=== PATIENT | male | born 1940 | race Caucasian/White ===

== ENCOUNTER 2018-05-14 09:18 | Inpatient (IN) | payer OTHER ==
[~2018-05-14] VITALS: Ht 170.2 cm; Wt 63.7 kg
[2018-05-14 09:23] VITALS: Ht 170.2 cm; Wt 63.7 kg
[2018-05-14 10:39] LABS: CARBON DIOXIDE 26.2 mmol/L (21-32); CHLORIDE SERUM 103 mmol/L (98-107); CREATININE SERUM 1.8 mg/dL (0.7-1.3); GLUCOSE SERUM 121 mg/dL (74-106); POTASSIUM SERUM 4.9 mmol/L (3.5-5.1); SODIUM SERUM 137 mmol/L (136-145)
[2018-05-14 10:41] LABS: BASOPHIL % 0.3 % (0-2); PLATELET COUNT 137 x10^3mcL (130-400)
[2018-05-14 10:49] LABS: ALBUMIN 3.5 g/dL (3.4-5.0); ALKALINE PHOSPHATASE 93 U/L (46-116); ALT/SGPT 27 U/L (16-63); AMYLASE 57 U/L (25-115); AST/SGOT 25 U/L (15-37); BILIRUBIN TOTAL 1.2 mg/dL (0.20-1.00); CHOLESTEROL 116 mg/dL (<200); HDL CHOLESTEROL 30 mg/dL (40-60); LIPASE 137 IU/L (73-393); MAGNESIUM 2.3 mg/dL (1.8-2.4); T4(THYROXINE) 5.8 ug/dL (4.7-13.3); TOTAL PROTEIN, SERUM 8.3 g/dL (6.4-8.2)
[2018-05-14 11:19] LABS: microscopic required? NO
[2018-05-14] MEDS ORDERED: LISINOPRIL2.5 MG PO (11:47)
[2018-05-14] MEDS ORDERED: MULTIVITAMIN1 SGL (11:50)
[2018-05-14] MEDS ORDERED: DIGOXIN0.125 M1 PO (11:50)
[2018-05-14] MEDS ORDERED: TOPROL XL25 MG PO (11:51)
[2018-05-14] MEDS ORDERED: LASIX20 MG PO (11:52)
[2018-05-14] MEDS ORDERED: XARELTO10 M1 PO (11:52)
[2018-05-14 11:53] LABS: urine erythrocyte NEGATIVE (NEGATIVE)
[2018-05-14] MEDS ORDERED: ELIQUIS2.5 MG PO ×2 (11:53)
[2018-05-14 11:59] LABS: AMPHETAMINE QUAL UR NONE DETECTED (See below)
[2018-05-14 14:08] VITALS: BP 113/79
[2018-05-14 17:00] VITALS: BP 117/74
[2018-05-14 19:44] VITALS: BP 122/80
[2018-05-15 05:48] VITALS: BP 116/66
[2018-05-15 06:42] LABS: CALCIUM 8.8 mg/dL (8.5-10.1); CARBON DIOXIDE 29.8 mmol/L (21-32); CHLORIDE SERUM 104 mmol/L (98-107); CREATININE SERUM 1.5 mg/dL (0.7-1.3); GLUCOSE SERUM 87 mg/dL (74-106); POTASSIUM SERUM 4.8 mmol/L (3.5-5.1); SODIUM SERUM 141 mmol/L (136-145)
[2018-05-15 07:03] LABS: BASOPHIL % 0.4 % (0-2); PLATELET COUNT 112 x10^3mcL (130-400); RED CELL DISTRIBUTION WIDTH 14.4 % (11.5-14.5)
[2018-05-15 09:26] VITALS: BP 107/81
[2018-05-15 13:09] VITALS: BP 121/79
[2018-05-15 16:26] VITALS: BP 105/67
[2018-05-15 20:36] VITALS: BP 109/75
[2018-05-16 06:07] VITALS: BP 115/64
[2018-05-16 07:08] LABS: BASOPHIL % 0.6 % (0-2); CALCIUM 8.6 mg/dL (8.5-10.1); CARBON DIOXIDE 32.6 mmol/L (21-32); CHLORIDE SERUM 103 mmol/L (98-107); CREATININE SERUM 1.6 mg/dL (0.7-1.3); GLUCOSE SERUM 73 mg/dL (74-106); PLATELET COUNT 124 x10^3mcL (130-400); RED CELL DISTRIBUTION WIDTH 14.4 % (11.5-14.5); SODIUM SERUM 140 mmol/L (136-145)
[2018-05-16 09:56] VITALS: BP 119/49
[2018-05-16 13:28] VITALS: BP 99/74
[2018-05-16 17:55] VITALS: BP 114/64
[2018-05-16 21:09] VITALS: BP 120/66
[2018-05-17 05:36] VITALS: BP 115/66
[2018-05-17 05:40] VITALS: BP 104/64
[2018-05-17 07:19] LABS: BASOPHIL % 0.4 % (0-2); PLATELET COUNT 149 x10^3mcL (130-400); RED CELL DISTRIBUTION WIDTH 14.5 % (11.5-14.5)
[2018-05-17 07:23] LABS: CARBON DIOXIDE 36.1 mmol/L (21-32); CHLORIDE SERUM 104 mmol/L (98-107); CREATININE SERUM 1.4 mg/dL (0.7-1.3); GLUCOSE SERUM 68 mg/dL (74-106); POTASSIUM SERUM 4.1 mmol/L (3.5-5.1); SODIUM SERUM 143 mmol/L (136-145)
[2018-05-17 07:58] VITALS: BP 119/63
[2018-05-17 13:02] VITALS: BP 120/91
[2018-05-17] MEDS ORDERED: LASIX20 MG PO (13:45)
[2018-05-17] MEDS ORDERED: METOPROLOL SUCC50 M2 PO (13:46)
[2018-05-17] MEDS ORDERED: DIG125 PO (13:46)
[2018-05-17 13:59] VITALS: BP 120/91
== END 2018-05-17 15:35 | disposition home health service (06) | DRG 291 ==
LOC: ED 09:18 → DU 12:23
PROVIDERS: Emergency Medicine; ADMIT Internal Medicine
DX: I11.0 Hypertensive heart disease with heart failure (principal); N17.0 Acute kidney failure with tubular necrosis; I48.91 Unspecified atrial fibrillation; I50.41 Acute combined systolic (congestive) and diastolic (congestive) heart failure; E11.65 Type 2 diabetes mellitus with hyperglycemia; E02 Subclinical iodine-deficiency hypothyroidism; Z68.27 Body mass index [BMI] 27.0-27.9, adult; Z79.01 Long term (current) use of anticoagulants; Z79.84 Long term (current) use of oral hypoglycemic drugs; Z91.14 Patient's other noncompliance with medication regimen
CPT/HCPCS: 82962; 83880; 90658; J1940; J3490

== ENCOUNTER 2018-10-22 04:18 | Inpatient (IN) | payer OTHER ==
[2018-10-22] VITALS (8 sets, daily range): BP systolic 81–124; BP diastolic 47–86
[~2018-10-22] VITALS: Ht 157.5 cm; Wt 68.0 kg
[~2018-10-22 04:18] MED LIST: DIG125 PO; DIGOXIN0.125 M1 PO; ELIQUIS2.5 MG PO; LASIX20 MG PO; LISINOPRIL2.5 MG PO; METOPROLOL SUCC50 M2 PO; MULTIVITAMIN1 SGL; TOPROL XL25 MG PO; XARELTO10 M1 PO
--- NOTE | 2018-10-22 04:45 | NUR ---
PT C/O OF CHEST PAIN AND ADM PAIN 12/05. SON STATES THAT FATHER WHEN HE CAME HOME LAST NIGHT WAS HAVING CHEST PAIN. SON SAYS FATHER DESCRIBES CHEST PAIN PRESSURE ON HIS CHEST. EKG NOTED OF AFIB W/ RVR DR NOTIFIED. PT A&OX3 UNABLE TO STATE WHERE HE WAS. PT SON AT BEDSIDE TRANSLATING WHAT PT NEEDS. ABLE TO COMMUNICATE NEEDS. PT W/ SINUS TACHY HR 140'S. DR NOTIFIED. HR SOUNDS RAPID GALLOP S1S2. O2 SATS 98-100%.
--- NOTE | 2018-10-22 05:07 | NUR ---
ADMIN 2.5 MG METROPOLOL AND WAITED FOR RESPONSE. AWAITING RESPONSE. WILL REASSESS.
--- NOTE | 2018-10-22 05:14 | NUR ---
NOTED PER DR TO ADMIN 2.5MG METROPOLOL AND WAIT 15 MINS TO REASSESS AND SEE IF THE OTHER 2.5ML IS NEEDED. ADMN 2.5MG METRO AWAITING RESULTS.
--- NOTE | 2018-10-22 05:17 | NUR ---
PT NOTED W/ INSPIRATORY WHEEZE [place] ALL LUNG SOLOMON.
--- NOTE | 2018-10-22 05:29 | NUR ---
NOTIFIED 2.5MG METRO W/ NO AVAIL. ADMIN REST OF 2.5MG METRO. ADMN 2.5MG METRO AWAITING RESULTS.
[2018-10-22 05:32] LABS: BASOPHIL % 0.5 % (0-2); PLATELET COUNT 155 x10^3mcL (130-400); RED CELL DISTRIBUTION WIDTH 14.1 % (11.5-14.5)
[2018-10-22 05:35] LABS: CALCIUM 8.5 mg/dL (8.5-10.1); CHLORIDE SERUM 101 mmol/L (98-107); CREATININE SERUM 2.1 mg/dL (0.7-1.3); GLUCOSE SERUM 93 mg/dL (74-106); POTASSIUM SERUM 5.1 mmol/L (3.5-5.1); SODIUM SERUM 134 mmol/L (136-145)
[2018-10-22 05:39] LABS: ALBUMIN 3.4 g/dL (3.4-5.0); ALKALINE PHOSPHATASE 77 U/L (46-116); ALT/SGPT 64 U/L (16-63); AST/SGOT 63 U/L (15-37)
[2018-10-22 05:41] LABS: TOTAL PROTEIN, SERUM 8.4 g/dL (6.4-8.2)
--- NOTE | 2018-10-22 06:50 | NUR ---
PT RESTING CALMLY IN BED. STATUS POST METRO ADM PT HR FROM THE 160'S DOWN TO THE 120'S. PT TOLERATING MORE MOVEMENT AND ACTIVITY. FAMILY @ BEDSIDE.
[2018-10-22] MEDS ORDERED: CLARITHROMYCIN500 M1 PO (07:35)
[2018-10-22] MEDS ORDERED: FLA500 PO (07:35)
[2018-10-22] MEDS ORDERED: AMPICILLIN500 MG PO (07:35)
[2018-10-22] MEDS ORDERED: EPZICOM1 TAB (07:35)
--- NOTE | 2018-10-22 07:36 | NUR ---
REPORT GIVEN TO LACIE FULLER. NURSING UPDATES. POC DISCUSSED.
--- NOTE | 2018-10-22 08:00 | NUR ---
RECEIVED PATIENT FROM ER AT THIS TIME. PATIENT ABLE TO AMBULATE FROM GURNEY TO BED WITH MINIMAL ASSISTANCE. PATIENT A/O X4 AND ABLE TO MAKE NEEDS KNOWN, FOLLOW COMMANDS, AND ANSWERS QUESTIONS APPROPRIATELY. DENIES HEADACHE/DIZZINESS. 2L NC IN PLACE AND TOLERATING WELL. BREATHING TACHYPNEA RR 24-28. PATIENT DENIES CHEST PAIN/PRESSURE AT THIS TIME. PULSES PALPABLE. WEAK PULSES NOTED TO PEDAL PULSES. EDEMA 3+ NOTED TO BLE (FEET). GENERALIZED WEAKNESS. BOWEL SOUNDS ACTIVE X4. PATIENT DENIES ABD PAIN, NAUSEA, AND VOMITING AT THIS TIME. PATIENT ABLE TO VOID WITH NO C/O BURNING/DISCOMFORT. MILD ERYTHEMA NOTED TO BUTTOCKS. ALL QUESTIONS AND CONCERNS ADDRESSED. SON AND AT BEDSIDE. ALL NEEDS ATTENDED TO. WILL CONTINUE TO MONITOR
--- NOTE | 2018-10-22 09:24 | NUR ---
ADMINISTERED CARDIZEM 15MG SLOW IVP AT THIS TIME. HR 119. PATIENT TOLERATED WELL. NO ADVERSE EFFECTS NOTED. ALL NEEDS ATTENDED TO. WILL CONTINUE TO MONITOR
--- NOTE | 2018-10-22 09:30 | NUR ---
PATIENT HEART RATE 95 AT THIS TIME S/P 15MG IVP CARDIZEM ADMINISTRATION. ALL NEEDS ATTENDED TO. WILL CONTINUE TO MONITOR
--- NOTE | 2018-10-22 11:15 | NUR ---
PATIENT NON RESPONSIVE TO VERBAL STIMULUS AND RAPID RESPONSE CALLED AT 10:47 AM. VITAL SIGNS 97/64 (75) HR 75 RR 26 AND O2 99 ON 2L NC. ACCUCHECK WAS CHECKED TWICE 10:49AM/10:50AM FIRST ONE WAS 34 AND SECOND 29. D50 ADMINISTERED AND BLOOD SUGAR RECHECKED AT 10:55 AM GLUCOSE 253. PATIENT ABLE TO OPEN EYES WITH PAINFUL STIMULATION, CONTINUED TO BE ALTERED. 10:57AM DR BARLOW AT BEDSIDE TO ASSESS PATIENT. VITAL SIGNS REASSESSED BLOOD PRESSURE 102/65 (72) HR 72 98% 2L NC. REASSESSED ACCUCHECK AT THIS TIME 11:15 GLUCOSE 184. BROUGHT PATIENT DOWN FOR STAT CT OF THE HEAD AND WILL TRANSFER PATIENT TO ICU BED 3. ALL QUESTIONS AND CONCERNS ADDRESSED. ALL NEEDS ATTENDED TO. WILL ENDORSE ALL CARE TO LOCK UP WORKERALINA JOSEPH
--- NOTE | 2018-10-22 11:23 | NUR ---
REPORT GIVEN TO [facility]- [facility]MO[facility]. ALL QUESTIONS ANSWERED. ATTENDING NURSE LACIE ACCOMPANIED PATIENT TO CT SCAN.
--- NOTE | 2018-10-22 11:35 | NUR ---
RECEIVED THE PATIENT TRANSFERRED FROM [facility]. PATIENT LETHARGIC AND CLOSING EYES, BUT AFTER WAKING UP THE PATIENT ORIENTED TO PERSON ANY PLACE AND IS GETTING RESTLESS AND AGITATED; PATIENT WAS EXPLAINED WHAT IS GOING ON AND REORIENTED PATIENT TO PLACE AND TIME. PATIENT DENIES ANY PAIN, SHORTNESS OF BREATH OR NAUSEA/VOMITING AT THIS TIME. PATIENT WAS HOOKED UP TO MONITOR # 3, WHICH READS AFIB. IV SITES NOTED TO RAC AND LAC. A SWAB FROM [facility] COLLECTED AND WILL BE SENT TO LAB FOR MRSA SCREENING. ASSESSMENT IMPLEMENTED. CALL LIGHT WITHIN REACH. SIDE RAILS UP X3. BED IS AT LOWEST POSITION, ALARM IS ON AND THE IS AT BEDSIDE.
--- NOTE | 2018-10-22 11:35 | NUR ---
PATIENT TRANSFERRED TO ICU BED 3 AT THIS TIME. ALL QUESTIONS AND CONCERNS ADDRESSED. ALL NEEDS ATTENDED TO. ENDORSED ALL CARE TO ICU NURSE JAKE
--- NOTE | 2018-10-22 13:55 | NUR ---
DR. GARCIA IS AT BEDSIDE ASSESSING THE PATIENT. UPDATE PROVIDED TO THE DOCTOR.
--- NOTE | 2018-10-22 14:15 | NUR ---
DR. GARCIA AT BEDSIDE ASSESSING PATIENT. MST ALINA MEDELLIN ON UNIT AND UPDATING DR. GARCIA TO PATIENTS STATUS. DR. GARCIA ORDERED 1L BOLUS OF NS. UPDATES PROVIDED TO STAFF ASSISTANT LORI AND PRIMARY RN JAKE.
--- NOTE | 2018-10-22 14:23 | NUR ---
ECHO PENDING PT. HAD STUDY DONE APRIL 2018
--- NOTE | 2018-10-22 14:38 | NUR ---
CAZARES CATH INSERTION WAS IMPLEMENTED ORDERED. SOME ADVID URINE NOTED IN THE CAZARES BAG.
[2018-10-22 15:00] LABS: BASOPHIL % 0.2 % (0-2); PLATELET COUNT 146 x10^3mcL (130-400)
[2018-10-22 15:04] LABS: RED CELL DISTRIBUTION WIDTH 14.6 % (11.5-14.5)
--- NOTE | 2018-10-22 15:23 | NUR ---
PATIENT TAKEN TO RAD DEPT FOR CT ABD/PELVIS AND ACCOMPANIED BY CHARGE NURSE.
[2018-10-22 15:35] LABS: CALCIUM 8.3 mg/dL (8.5-10.1); CHLORIDE SERUM 100 mmol/L (98-107); CREATININE SERUM 2.6 mg/dL (0.7-1.3); GLUCOSE SERUM 164 mg/dL (74-106); SODIUM SERUM 134 mmol/L (136-145)
--- NOTE | 2018-10-22 15:50 | NUR ---
THE CAME BACK TO THE ROOM.
[2018-10-22 15:58] LABS: CARBON DIOXIDE 7.4 mmol/L (21-32)
[2018-10-22 15:59] LABS: POTASSIUM SERUM 6.2 mmol/L (3.5-5.1)
--- NOTE | 2018-10-22 16:10 | NUR ---
DR. BECKHAM AND DR. 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
--- NOTE | 2018-10-22 16:30 | NUR ---
INTUBATION NOTE: AT 1625: 50MCG OF PROPOFOL GIVEN TO THE PATIENT. AT 1626: ANOTHER 50MCG OF PROPOFOL GIVEN TO THE PATIENT BECAUSE THE PATIENT REMAINS AGITATED AND ATTEMPTING TO GET OUT OF BED. AT 1626: 20MG OF ROCURONIUM GIVEN TO THE PATIENT. 15 1628: ANOTHER 20MG OF ROCURONIUM GIVEN TO THE PATIENT. AT 1629: THE PATIENT IS INTUBATED WITH ETT 8.0 IS SECURED TO FACE AT 26CM AT LIPLINE.
--- NOTE | 2018-10-22 16:30 | NUR ---
NGT WAS INSERTED TO RIGHT NARE BY THE CHARGE NURSE.
--- NOTE | 2018-10-22 16:45 | NUR ---
AT 1645: DR. BECKHAM AND DR. BARLOW ARE AT BEDSIDE GETTING READY FOR CVC PLACEMENT. TIME OUT IMPLEMENTED AT THIS TIME BY THE CHARGE FRANK MCKEON.
--- NOTE | 2018-10-22 17:55 | NUR ---
DR. VU IS IN TO SEE THE PATIENT.
--- NOTE | 2018-10-22 18:00 | NUR ---
CVC PLACEMENT IS DONE WITH CVC AT [facility]. AWAITING FOR XCR TO CONFIRM THE PLACEMENT.
--- NOTE | 2018-10-22 18:20 | NUR ---
RT GUI TITRATED FIO2 FROM 100% DOWN TO 50%.
--- NOTE | 2018-10-22 19:20 | NUR ---
REPORT GIVEN TO SHANNON MAN RN. CONCERNS ADDRESSED.
--- NOTE | 2018-10-22 19:25 | NUR ---
DR. LOPEZ IS AT BEDSIDE SEEING THE PATIENT. UPDATE PROVIDED TO THE DOCTOR. DOCTOR WILL ORDER SOME DIGOXIN FOR FOR THE PATIENT.
--- NOTE | 2018-10-22 19:30 | NUR ---
RECEIVED REPORT FROM ALINA JOSEPH. PT IS INTUBATED AND SEDATED WITH FENTANYL AND VERSED. PT IS ALERT AND RESPONSIVE TO TACTILE STIMULUS. 8.0 ETT AT 26 CM AT LL. RIGHT NGT PATENT , AND INTACT. PT IS BREATHING E.U ON VENT. SETTINGS INCLUDE TV: 450, O2: 50%, PEEP: 5, AND RATE: 18. LUNG SOUNDS SHOW COURSE CRACKLES TO BILATERAL UPPER LOBES, DIMINSHED TO BILATERAL LOWER LOBES. S1 S2 HEART SOUNDS AUSCULTATED, PT IN A FIB. PERIPHERAL IV TO RIGHT FA AND LEFT AC PATENT, DRESSING CDI. RIJ CVC PATENT, DRESSING CDI. D10 INFUSING AT 20 ML/HR, BANANNA BAG AT 101.6 ML/HR. EDEMA TO BLE +1. CAP REFILL <3 SECONDS X4. SKIN IS WARM AND CONSISTENT WITH ETHNICITY. PULSES MODERATE X2 BUE, WEAK X2 BLE. ABD IS SOFT AND FLAT WITH ACTIVE BOWEL SOUNDS X4Q. CAZARES DRAINING VIA GRAVITY URINE YELLOW WITH POOR OUTPUT. SOFT WRIST RESTRAINTS IN PLACE.
[2018-10-22 19:35] LABS: UA SPECIFIC GRAVITY >=1.030 (1.005-1.035); microscopic required? YES; urine erythrocyte TRACE (NEGATIVE)
[2018-10-22 19:43] LABS: AMPHETAMINE QUAL UR NONE DETECTED (See below)
[2018-10-22 21:13] LABS: BASOPHIL % 0.3 % (0-2); PLATELET COUNT 162 x10^3mcL (130-400)
--- NOTE | 2018-10-22 21:30 | NUR ---
CVP LINE INITIATED. CURRENT VALUE IS 23.
[2018-10-22 21:37] LABS: ALKALINE PHOSPHATASE 71 U/L (46-116); CALCIUM 7.8 mg/dL (8.5-10.1); CHLORIDE SERUM 104 mmol/L (98-107); CREATININE SERUM 3.1 mg/dL (0.7-1.3); SODIUM SERUM 146 mmol/L (136-145)
[2018-10-22 21:42] LABS: ALT/SGPT 1931 U/L (16-63)
[2018-10-22 21:43] LABS: POTASSIUM SERUM 5.6 mmol/L (3.5-5.1)
[2018-10-22 21:52] LABS: GLUCOSE SERUM 87 mg/dL (74-106)
[2018-10-22 22:10] LABS: TOTAL PROTEIN, SERUM 7.5 g/dL (6.4-8.2)
[2018-10-22 22:11] LABS: AST/SGOT 2917 U/L (15-37)
--- NOTE | 2018-10-22 22:53 | NUR ---
CARMELLA RT WENT FROM 50% TO 40% ON FIO2.
--- NOTE | 2018-10-22 23:00 | NUR ---
TITRATED FENTANYL FROM 0.379 TO 0.5 MCG/KG/HR FOR INCREASED AGITATION AND RESTLESSNESS.
--- NOTE | 2018-10-22 23:33 | NUR ---
DR. ADAIR AT BEDSIDE FOR UPDATES. ALL QUESTIONS AND CONCERNS ANSWERED.
[2018-10-23] VITALS (16 sets, daily range): BP systolic 87–121; BP diastolic 37–69
--- NOTE | 2018-10-23 00:03 | NUR ---
TITRATED VERSED FROM 1 TO 2 MG/HR FOR INCREASED AGITATION AND RESTLESSNESS.
--- NOTE | 2018-10-23 02:30 | NUR ---
TITRATED VERSED FROM 2 TO 1 MG/HR FOR DECREASED BP, AND PT NO LONGER SHOWING SIGNS OF AGITATION.
--- NOTE | 2018-10-23 03:09 | NUR ---
TITRATED VERSED FROM 1 TO 0.5 MG/HR FOR DECREASED BP, AND PT NO LONGER SHOWING SIGNS OF AGITATION.
--- NOTE | 2018-10-23 04:30 | NUR ---
PT PROVIDED WITH FULL BED BATH. ALL LINENS CHANGED, ALL SUCTION EQIPMENT CHANGED. PT'S TWO PERIPHERAL IV'S BECAME DISLODGED WHILE TURNING. PT TOLERATED WELL.
[2018-10-23 05:13] LABS: BASOPHIL % 0.1 % (0-2)
[2018-10-23 05:16] LABS: PLATELET COUNT 121 x10^3mcL (130-400); RED CELL DISTRIBUTION WIDTH 15.1 % (11.5-14.5)
--- NOTE | 2018-10-23 05:30 | NUR ---
TITRATED VERSED FROM 0.5 MG/HR TO 1 MG/HR FOR INCREASED RESTLESSNESS AND AGITATION.
[2018-10-23 05:34] LABS: CALCIUM 7.5 mg/dL (8.5-10.1); CARBON DIOXIDE 16.2 mmol/L (21-32); CHLORIDE SERUM 107 mmol/L (98-107); GLUCOSE SERUM 144 mg/dL (74-106); MAGNESIUM 2.8 mg/dL (1.8-2.4); POTASSIUM SERUM 4.4 mmol/L (3.5-5.1); SODIUM SERUM 145 mmol/L (136-145)
--- NOTE | 2018-10-23 05:45 | NUR ---
DR. BARLOW AT BEDSIDE FOR UPDATES. ALL QUESTIONS AND CONCERNS ANSWERED.
--- NOTE | 2018-10-23 07:15 | NUR ---
RECIEVED REPORT FROM ALINA MAN TO ASSUME ALL CARES. ALL QUESTIONS AND CONCERNS ADDRESSED. PATIENT IS SEDATED ON VERSED AND FENTANYL DRIP. RSS-5. ETT AND RIGHT NGT IN PLACE AND SECURED. ETT TO VENT. RESPIRATIONS ARE EQUAL AND SYMMETRICAL. RIJ TLC IN PLACE AND SECURED INFUSING WELL WITH DRESSING C/D/I. SCD'S ON TO BLE. F/C IN PLACE AND SECURED DRAINING YELLOW URINE TO GRAVITY. PATIENT POSITIONED TO RIGHT SIDE WITH PILLOWS IN PLACE TO ALLEVIATE PRESSURE POINTS AND HOB ELEVATED. BILATERAL SOFT WRISTS RESTRAINTS IN PLACE TO PREVENT PATIENT FROM PULLING OUT IV LINES/TUBES AND FOR PATIENT SAFETY. BED TO LOWEST POSITION, SIDE RAILS UP X3, CALL LIGHT WITHIN REACH. WILL CONTINUE TO MONITOR.
--- NOTE | 2018-10-23 07:36 | NUR ---
TITRATED VERSED TO 2 MG/HR AND FENTANYL TO 1 MCG/KG/HR FOR INCREASED AGITATION AND RESTLESSNESS.
--- NOTE | 2018-10-23 07:46 | NUR ---
ALL CARE ENDORSED TO ALINA MARIE. ALL QUESTIONS AND CONCERNS ANSWERED.
--- NOTE | 2018-10-23 07:50 | NUR ---
ETT IS AT 26 CM AT THE INNER LIP LINE. CXR CAME BACK SHOWING THE ETT TIP IS IN THE RIGHT MAINSTEM BRONCHUS AND SHOULD BE RETRACTED APPROX 2 CM. RT CARMELLA MADE AWARE AND IS AT BEDSIDE. ETT RETRACTED TO 25 CM LL. CXR TO BE ORDERED TO CONFIRM ETT PLACEMENT. WILL CONTINUE TO MONITOR.
--- NOTE | 2018-10-23 08:00 | NUR ---
BILATERAL SOFT WRISTS RESTARINTS REMOVED AT THIS TIME. PATIENT REMAINS SEDATED ON VERSED DRIP AT 2 MG/HR AND FENTANYL DRIP AT 1 MCG/KG/MIN. RSS-5. NO SIGNS OF PATIENT ATTEMPTING TO PULL OUT ETT AND/OR ANY OTHER LINES AT THIS TIME. PATIENT IN VIEW OF NURSING STATION AND WILL BE MONITORED CLOSELY. WILL CONTINUE TO MONITOR.
--- NOTE | 2018-10-23 08:39 | NUR ---
RECEIVED ORDERS FOR US GUIDED THORACENTESIS; PRELIMINARY EVAL DONE SHOWING APPROXIMATELY 300 ML RIGHT PLEURAL FLUID AND NO LEFT EFFUSION. ALSO, PT/PTT BOTH HIGH, AND PATIENT ON POSITIVE PRESSURE VENTILATION. SPOKE WITH PATIENT'S NURSE FRANK WHO WILL CONFER WITH CARE TEAM DURING ROUNDS REGARDING ORDER FOR THORACENTESIS. DR JOVEL AWARE.
--- NOTE | 2018-10-23 08:53 | NUR ---
VITAL AF 1.2 TUBE FEEDINGS STARTED AT THIS TIME AT 10 ML/HR VIA RIGHT NGT. FWF 50 ML Q 4 HRS. WILL CONTINUE TO MONITOR.
--- NOTE | 2018-10-23 09:18 | NUR ---
ISOGEL MATTRESS APLIED TO BED. WILL CONTINUE TO MONITOR.
--- NOTE | 2018-10-23 09:30 | NUR ---
DR. ALVAREZ AT BEDSIDE TO ASSESS PATIENT AND SPOKE TO PATIENT'S . UPDATES PROVIDED AND POC DISCUSSED. WILL CONTINUE TO MONITOR.
--- NOTE | 2018-10-23 09:39 | NUR ---
PATIENT ROUNDS WITH DR. SADLER AND RESIDENTS. CHARGE NURSE AND PRIMARY NURSE AT BEDSIDE. UPDATES PROVIDED AND POC DISCUSSED. WILL CONTINUE TO MONITOR.
--- NOTE | 2018-10-23 09:41 | NUR ---
NIBP 86/49, MAP 64. VERSED DRIP TITRATED DOWN TO 1 MG/HR AND FENTANYL DRIP REMAINS AT 1 MCG/KG/HR. RSS-5. WILL CONTINUE TO MONITOR.
--- NOTE | 2018-10-23 12:00 | NUR ---
DR. GARCIA AND DR. BARLOW AT BEDSIDE TO ASSESS PATIENT. UPDATES PROVIDED AND POC DISCUSSED. ORDERS TO TITRATE SEDATION DOWN, GIVE 1 LITER LACTATED RINGERS IV AND PATIENT TOLERATES TUBE FEEDINGS THE D10 IVF'S CAN BE TITRATED OFF TO MAINTAIN BLOOD SUGAR NEEDED. WILL FOLLOW AND CONTINUE TO MONITOR.
--- NOTE | 2018-10-23 12:05 | NUR ---
VERSED DRIP TITRATED DOWN TO 0.5 MG/HR AND FENTANYL DRIP TITRATED DOWN TO 0.5 MCG/KG/HR. RSS REMAINS 5. WILL CONTINUE TO MONITOR.
--- NOTE | 2018-10-23 12:26 | NUR ---
KIARRA KAHN AT BEDSIDE FOR ECHOCADIOGRAM. WILL CONTINUE TO MONITOR.
--- NOTE | 2018-10-23 13:13 | NUR ---
LIMITED ECHO-PER DR GARCIA-DONE
--- NOTE | 2018-10-23 14:01 | NUR ---
RIGHT SIDED THORACENTESIS DONE BY DR. JOVEL AT BEDSIDE. ONLY APPROX 20 ML'S OF BLOOD DRAINED. FLUID SENT TO LAB FOR TEST BY ALINA MEYER. PATIENT TOLERATED WELL. WILL CONTINUE TO MONITOR.
--- NOTE | 2018-10-23 14:30 | NUR ---
VITAL AF 1.2 TUBE FEEDINGS TITRATED UP 20 20 ML/HR AT THIS TIME. WILL CONTINUE TO MONITOR.
--- NOTE | 2018-10-23 15:30 | NUR ---
RECIEVED CALL FROM MICROBILOGY THAT THE THORACENTESIS FLUID IS BEING REJECTED TO RUN ANY TESTS DUE TO NOT HAVING ENOUGH. DR. BARLOW MADE AWARE. WILL CONTINUE TO MONITOR.
--- NOTE | 2018-10-23 17:00 | NUR ---
DR. SPARKS AT BEDSIDE TO ASSESS PATIENT. UPDATES PROVIDED AND POC DISCUSSED. WILL CONTINUE TO MONITOR.
--- NOTE | 2018-10-23 18:30 | NUR ---
VITAL AF 1.2 TUBE FEEDINGS TITRATED UP TO 30 ML/HR WITH FWF REMAINING THE SAME AT 50 ML/HR Q 4 HRS. WILL CONTINUE TO MONITOR.
--- NOTE | 2018-10-23 19:05 | NUR ---
RECEIVED REPORT FROM FRANK FULLER. ASSUMING ALL CARE
--- NOTE | 2018-10-23 19:20 | NUR ---
RECEIVED PT LAYING IN BED. PT IS INTUBATED AND SEDATED ON FENTANYL @ 0.5 MCG/KG/HR AND VERSED @ 0.5 MG/HR. PT RESPONDS TO PAINFUL STIMULI. RSS=5. PUPILS WITH SLUGGISH RESPONSE TO LIGHT, 3 MM BILAT. GAG REFLEX PRESENT. PT NOT ABLE TO FOLLOW SIMPLE COMMANDS. 8.0 ETT INTACT/SECURED. 25 CM @ LL. RIJ CVC IN PLACE, DRESSING CDI, ALL PORTS PATENT. RIGHT NARE NGT IN PLACE/SECURED. ORAL CARE PROVIDED PER VAP PROTOCOL. BREATHING IS E/U ON VENT. VENT SETTINGS: VCV/AC MODE, RATE 18, VT 450, FIO2 30%, PEEP 5. LUNGS SOUND CLEAR BILAT. SYMMETRICAL CHEST EXPANSION NOTED. S1/S2 HEART SOUNDS AUSCULTATED. CHEST WALL EQUAL AND SYMMETRICAL. NO S/S OF CP NOTED. HR 88, BP 91/48 MAP 66. CVP=10. WEAK PULSES X4 EXTREMITIES. SKIN IS WARM AND DRY. +1 PITTING EDEMA NOTED TO BLE. CAP REFILL < [address] D10 INFUSING @ 20 ML/HR. GENERALIZED WEAKNESS. PT ON BEDREST. NO JOINT SWELLING/DEFORMITY NOTED. VITAL AF TF INFUSING @ 30 ML/HR WITH 50 CC FWF Q4H. GRV=5, REPLACED. TOLERATING WELL. NO N/V NOTED. ABD IS SOFT/DISTENDED. BOWEL SOUNDS ACTIVE X4 QUADRANTS. NO BM NOTED. CAZARES IS INTACT/SECURED, DRAINING VIA GRAVITY WITH YELLOW COLORED URINE. NO SCROTAL EDEMA NOTED. ERYTHEMA NOTED TO COCCYX AREA, OPTIFOAM IN PLACE. PT REPOSITIONED Q2H AND PRN FOR COMFORT. FAMILY AT BEDSIDE. BED IN LOW POSITION. CALL LIGHT IN REACH. WILL CONT TO MONITOR
--- NOTE | 2018-10-23 21:10 | NUR ---
BS 144. PT ON VITAL AF TUBE FEEDING AT 30 ML/HR. D10 TITRATED TO 10 ML/HR PER ORDER. WILL CONT TO MONITOR
--- NOTE | 2018-10-23 22:30 | NUR ---
GRV=30. VITAL AF TF ADVANCED TO 40 ML/HR WITH 50 CC FWF Q4H. WILL CONT TO MONITOR.
[2018-10-24] VITALS (18 sets, daily range): BP systolic 79–127; BP diastolic 41–70; Ht 157.5 cm; Wt 68.0 kg
--- NOTE | 2018-10-24 00:24 | NUR ---
DR. GARCIA AT BEDSIDE, UPDATED ON PT'S CURRENT STATUS. NO NEW ORDERS
--- NOTE | 2018-10-24 02:30 | NUR ---
GRV=15. VITAL AF TUBE FEEDING ADVANCED TO GOAL OF 45 ML/HR WITH 50 CC FWF Q4H. WILL CONT TO MONITOR
--- NOTE | 2018-10-24 04:45 | NUR ---
FULL BED BATH PROVIDED. GOWN AND LINENS CHANGED. PERICARE, ORAL, AND CAZARES CARE PROVIDED. HEELS OFFLOADED. SCD IN PLACE.
[2018-10-24 05:00] LABS: CALCIUM 6.8 mg/dL (8.5-10.1); CHLORIDE SERUM 109 mmol/L (98-107); CREATININE SERUM 2.5 mg/dL (0.7-1.3); GLUCOSE SERUM 233 mg/dL (74-106); MAGNESIUM 2.4 mg/dL (1.8-2.4); PHOSPHOROUS 3.8 mg/dL (2.5-4.9); POTASSIUM SERUM 3.4 mmol/L (3.5-5.1); SODIUM SERUM 147 mmol/L (136-145)
[2018-10-24 05:05] LABS: BASOPHIL % 0 % (0-2); PLATELET COUNT 123 x10^3mcL (130-400); RED CELL DISTRIBUTION WIDTH 14.9 % (11.5-14.5)
--- NOTE | 2018-10-24 05:40 | NUR ---
DR. BARLOW AT BEDSIDE. UPDATED ON PT'S STATUS. ALL QUESTIONS/CONCERNS ADDRESSED
--- NOTE | 2018-10-24 05:55 | NUR ---
DR. BARLOW MADE AWARE PT HAS ACHS ACCU CHECKS AND NO SLIDING SCALE ORDERED. AWAITING ORDERS
--- NOTE | 2018-10-24 07:00 | NUR ---
RECEIVED REPORT FROM ERNESTINA FULLER. QUESTIONS AND CONCERNS ADDRESSED. WILL RESUME CARE OF PT.
--- NOTE | 2018-10-24 07:04 | NUR ---
REPORT GIVEN TO DEIDRA FULLER. ALL QUESTIONS/CONCERNS ADDRESSED AT THIS TIME. ENDORSING ALL CARE
--- NOTE | 2018-10-24 07:05 | NUR ---
RECEIVED PT INTUBATED AND SEDATED ON FENT @ 0.5 MCG/KG/HR AND VERSED @ 0.5 MG/HR. RSS = 4. ABLE TO FOLLOW SIMPLE COMMANDS. EYES OPEN TO VERBAL, TACTILE, AND PAINFUL STIMULUS. PUPILS ARE EQUAL, ROUND, AND REACTIVE TO LIGHT B/E. NO FACIAL DROOP NOTED. ABLE TO NOD IN RESPONSE TO QUESTIONS. 8.0 ETT @ 25 LL. R NARE NGT INTACT AND SECURED, NGT TO VITAL AF 1.2 TUBE FEEDINGS @ 45 ML/HR WITH 50CC FWF Q4H. NO S/S OF ASPIRATION NOTED. RIJ TLC CVC INTACT AND SECURED, DRESSING CDI. D10 INFUSING @ 10 ML/HR. TRACHEA MIDLINE. NO JVD PRESENT. ETT TO VENT: VCV/AC MODE = 5 PEEP, 18 RATE, 450 VT, 30% FIO2. RESPIRATIONS ARE EVEN AND UNLABORED. SYMMETRICAL CHEST WALL EXPANSION NOTED. NO AUDIBLE ADVENTITIOUS LUNG SOUNDS HEARD. NO S/S OF RESP DISTRESS NOTED. A-FIB ON TEACHERS ASSISTANT. NO S/S OF CP. +1 EDEMA TO BUE, +2 PITTING EDEMA TO BLE. SKIN IS WARM/DRY TO TOUCH, GARCIA/BROWN IN COLOR. ABD IS SOFT, SYMMETRICAL, ROUNDED, AND NONTENDER. NO BM AT THIS TIME. F/C INTACT AND DRAINING VIA GRAVIY, NO DEPENDENT LOOPS NOTED. URINE IS YELLOW IN COLOR. NO PENILE DISCHARGE/BLEEDING, NO SCROTAL EDEMA. ERYTHEMA NOTED TO COCCYX AREA WITH OPTIFOAM IN PLACE. X3 SIDE RAILS UP, HOB 30 DEGREES, SCD TO BLE, ISOGEL MATTRESS IN USE, BED IN LOWEST POSITION.
[2018-10-24 07:10] LABS: BILIRUBIN DIRECT 1.53 mg/dL (0.0-0.2); BILIRUBIN TOTAL 2.18 mg/dL (0.20-1.00)
[2018-10-24 07:11] LABS: TOTAL PROTEIN, SERUM 5.4 g/dL (6.4-8.2)
--- NOTE | 2018-10-24 08:13 | NUR ---
TITRATED FENT TO 0.25 MCG/KG/HR AND VERSED TO 0.25 MG/HR FOR CPAP TRIALS LATER TODAY.
--- NOTE | 2018-10-24 08:13 | NUR ---
DR. GARCIA AT BEDSIDE ASSESSING PT. ALL QUESTIONS ANSWERED AND ADDRESSED. STATED FOR PT TO BE WEANED OFF SEDATION AND FOR CPAP TRIALS LATER ON IN THE DAY. WILL CARRY OUT ORDERS.
--- NOTE | 2018-10-24 08:15 | NUR ---
DR. GARCIA STATED FOR LACTIC ACID LABS TO BE DISCONTINUED FOR THE PT BECAUSE OF THE PT'S LAB VALUE WITHIN RANGE (LACTIC ACID = 1.4).
[2018-10-24] MEDS ORDERED: XARELTO10 M1 PO (08:25)
[2018-10-24] MEDS ORDERED: SPIRONOLACTONE100 MG PO (08:26)
[2018-10-24] MEDS ORDERED: LASIX20 MG PO (08:27)
--- NOTE | 2018-10-24 09:35 | NUR ---
ZHENG RT AT BEDSIDE FOR CPAP TRIALS. SHERITA AND NITA BOTH TURNED OFF AT THIS TIME. BILATERAL SOFT WRIST RESTRAINTS APPLIED TO PT FOR SAFETY. TWO FINGER WIDTH APPLIED UNDER RESTRAINTS, PT ABLE TO MOVE FINGERS B/E, CAP REFILL <3 SEC TO BUE.
--- NOTE | 2018-10-24 10:34 | NUR ---
PATIENT ROUNDS WITH DR. PLUMMER AND RESIDENTS. CHARGE NURSE AND PRIMARY NURSE AT BEDSIDE. UPDATES PROVIDED AND POC DISCUSSED. WILL CONTINUE TO MONITOR.
--- NOTE | 2018-10-24 12:42 | NUR ---
SCREEN FOR LOW JAIMEE SCALE AT RISK CONTINUE PRESSURE ULCER INJURY PREVENTION INTERVENTIONS: -TURN AND REPOSITION PATIENT Q 2H OFFLOAD LEFT AND RIGHT BUTTOCKS -ASSESS AND MONITOR SKIN CONDITION DURING POSITION CHANGE -OFFLOAD BILATERAL HEELS BY PLACING PILLOWS UNDER CALVES AT ALL TIMES, UNLESS OTHERWISE CONTRAINDICATED -PRESSURE REDISTRIBUTION SURFACE THERAPY -KEEP SKIN CLEAN AND DRY AT ALL TIMES. -OPTIFOAM TO BUTTOCKS QD AND PRN IF SOILING PREVENTION
--- NOTE | 2018-10-24 13:20 | NUR ---
PT HAD A SOFT LIGHT BROWN/YELLOW MODERATE BOWEL MOVEMENT. PT CLEANED, CHUCKS CHANGED, NEW OPTIFOAM IN PLACE. PT TOLERATED WELL. NO ACUTE DISTRESS NOTED.
--- NOTE | 2018-10-24 16:16 | NUR ---
TITRATED PT PSV FROM [address] GARCIA. PT TOLERATING CHANGES WELL. WILL PLACE PT BACK ON FULL SUPPORT LAST VENT CHECK.
--- NOTE | 2018-10-24 16:50 | NUR ---
DR. SPARKS AT BEDSIDE ASSESSING PT. STATED TO CHANGE FWF TO 100 CC Q2H. WILL CARRY OUT ORDERS.
--- NOTE | 2018-10-24 17:27 | NUR ---
PT HAD A SMALL MUCOUS-LIKE BOWEL MOVEMENT. SCANT AMNT OF BLOOD NOTED IN STOOL. PT CLEANED, CAZARES CARE COMPLETED, CHG WIPES APPLIED, CHUCKS CHANGED. PT TOLERATED WELL.
--- NOTE | 2018-10-24 17:30 | NUR ---
ZHENG RT AT BEDSIDE PLACING PT BACK ON VCV/AC MODE. INITIATED FENT AT 0.5 MCG/KG/HR AND VERSED @ 0.5 MG/HR PER DR. GARCIA'S ORDERS.
--- NOTE | 2018-10-24 19:30 | NUR ---
REC'D REPORT FROM YOLANDA FULLER TO ASSUME CARE. PT INTUBATED AND SEDATED ON VERSED 0.5 MG/HR, FENTANYL 0.5 MCG/KG/HR WITH RSS 4. PERRLA NOTED. 8.0 ETT SECURED AND 25 CM LL. NO JVD NOTED. TRACHEA MIDLINE. R NARE NGT INTACT AND PATENT. RIJ CVC INTACT, PORTS PATENT, DSG CDI. ETT TO VENT: AC MODE RATE 14, TV 450, PEEP 5, FIO2 30%. RESPS E/U. CHEST RISE EQUAL AND SYMMETRICAL. LUNG SOUNDS EXP WHEEZES [place], DIM BASES. ADOBE FLEX DEVELOPER IN PLACE SHOWING AFIB WITH HR 89. BP 119/62 MAP 81. PULSES PALPABLE X4. CAP REFILL < 3 SECS. BUE TRACE EDEMA, BLE 2+ PITTING EDEMA ELEVATED ON PILLOWS. BLE SCDS IN PLACE. ISOGEL MATTRESS IN PLACE. TF VITAL AF INFUSING @ 45ML/HR WITH FWF 100ML Q2H, GRV=10ML REPLACED, TOLERATING WELL. ABD ROUND, SOFT, NONTENDER TO TOUCH. BOWEL SOUNDS ACTIVE. NO N/V NOTED. F/C INTACT AND DRAINING VIA GRAVITY YELLOW URINE. NO SCROTAL EDEMA. NO PENILE DISCHARGE NOTED. ERTHEMA TO COCCYX AREA WITH OPTIFOAM IN PLACE. GEN WEAKNESS NOTED. TURNED AND REPOSITIONED Q2H FOR PRESSURE RELIEF. BUE SOFT WRIST RESTRAINTS IN PLACE FOR PT SAFETY. FALL PRECAUTIONS APPLIED AND MAINTAINED. PTS AT BEDSIDE. ALL NEEDS MET AT THIS TIME. WILL CONTINUE TO MONITOR.
--- NOTE | 2018-10-24 20:10 | NUR ---
FULL BED BATH PROVIDED WITH CHG WIPES, F/C CARE PROVIDED, LINENS CHANGED. NO BM NOTED. COCCYX AREA OPTIFOAM CDI.
--- NOTE | 2018-10-24 23:50 | NUR ---
PT WITH RSS 4, NO S/SX OF PAIN PER FLACC SCALE.
[2018-10-25] VITALS (13 sets, daily range): BP systolic 111–134; BP diastolic 60–91
--- NOTE | 2018-10-25 02:00 | NUR ---
PTS CAZARES EMPTIED 1L DAVID COLORED URINE.
--- NOTE | 2018-10-25 03:59 | NUR ---
PT SEDATED WITH RSS 4, NO S/SX OF PAIN PER FLACC SCALE.
[2018-10-25 04:54] LABS: BASOPHIL % 0.7 % (0-2)
[2018-10-25 05:01] LABS: PLATELET COUNT 116 x10^3mcL (130-400); RED CELL DISTRIBUTION WIDTH 15.4 % (11.5-14.5)
[2018-10-25 05:13] LABS: ALKALINE PHOSPHATASE 72 U/L (46-116); BILIRUBIN TOTAL 2.42 mg/dL (0.20-1.00); CALCIUM 6.8 mg/dL (8.5-10.1); CARBON DIOXIDE 29.2 mmol/L (21-32); CHLORIDE SERUM 111 mmol/L (98-107); CREATININE SERUM 1.8 mg/dL (0.7-1.3); GLUCOSE SERUM 157 mg/dL (74-106); POTASSIUM SERUM 3.4 mmol/L (3.5-5.1); SODIUM SERUM 147 mmol/L (136-145)
[2018-10-25 05:15] LABS: ALBUMIN 1.9 g/dL (3.4-5.0); ALT/SGPT 2051 U/L (16-63); AST/SGOT 1086 U/L (15-37); TOTAL PROTEIN, SERUM 5.5 g/dL (6.4-8.2)
--- NOTE | 2018-10-25 05:15 | NUR ---
DR SILVAED AT BEDSIDE, UPDATED ON STATUS, NO NEW ORDERS GIVEN.
--- NOTE | 2018-10-25 06:28 | NUR ---
DR GARCIA AT BEDSIDE, UPDATED ON STATUS, PER DR GARCIA START WEANING TRIALS TODAY ON CPAP, ABG ON CPAP, THEN POSSIBLY EXTUBATE.
--- NOTE | 2018-10-25 07:16 | NUR ---
REPORT GIVEN TO ZULLY FULLER TO ASSUME CARE.
--- NOTE | 2018-10-25 07:52 | NUR ---
FENTANYL AND VERSED TURNED OFF @ 0747 FOR VENT WEANING TRIAL. WILL CONTINUE TO MONITOR PT.
--- NOTE | 2018-10-25 08:10 | NUR ---
PT PLACED ON CPAP 10/5 BY RT AT THIS TIME. WILL CONTINUE TO MONITOR FOR S/S DISTRESS. RR 14, SPO2 99%.
--- NOTE | 2018-10-25 11:08 | NUR ---
PT EXTUBATED AT THIS TIME. NO STRIDOR NOTED, RR 18, SPO2 99% ON 2L NASAL CANNULA. NO S/S DISTRESS NOTED. CHEST EXPANSION SYMMETRIC. WILL CONTINUE TO MONITOR PATIENT.
--- NOTE | 2018-10-25 14:28 | NUR ---
Initial Nutrition Assessment: (IC03-A) JENNIFER ESCOBARIREZJUAN A 77M Dx: Afib w/ rapid ventricular response PMHx: CHF PSHx: None Labs: Na 147 H, K 3.4 L, BG 157 H, BUN 41 H, Cr 1.8 H, Alb 1.9 L, Ca 6.8 L, AST 1086 H, ALT 2051 H, BNP 686.81, PT 14. 0 H, PTT 34.3 H, INR 1.5 H Meds: Cephulac, Folic Acid, Pro-amatine, VitB1 Diet: NPO (TF), Vital AF 1.2 @10mL/hr (goal 45mL), adv q4hrs, FWF 100mL q2hrs PO intake since admission: NPO Ht: 62in Wt: 148# BMI: 27.2 Bed scale: Unable to assess (on bed vargas at this time) IBW: 118# %IBW: 125% UBW: Unable to assess (on bed vargas at this time) Age: 77 Food Allergies: Unable to assess (on bed vargas at this time) Skin: Erythema to coccyx area w/ optifoam in place Matthew: 13 Edema: trace BUE, BLE 2+ pitting GI: Abd round, soft, nontender to touch, BS active, no N/V noted Last BM: 10/25 RD Note (10/25): Noted pt intubated 10/22 per H&P, planned to be extubated today 10/25 r/t significant improvement today. Pt noted on mechanical vent. Pt discussed during bed huddles, Dr Foster states pt is improving well, plan to wean off vent. Visited pt bedside, COMMUNICATION PROFESSOR states pt would not like to be bothered right now, on bedpan at this time. Spoke w/ RN, states pt does not have much residuals (5mL at most), and TF is at 45mL/hr at this time. If pt eaned off mechanical ventliation, will recommend readjust TF + FWF orders. Spoke w/ Dr Moreno regarding TF& FWF recommendation, confirmed. Problem with N/V/D/C: Unable to assess (on bed vargas at this time) Problems with: Chewing: Unable to assess (on bed vargas at this time) Swallowing: Unable to assess (on bed vargas at this time) Current appetite: Unable to assess (on bed vargas at this time) Recent wt change: Unable to assess (on bed vargas at this time) %wt change: Unable to assess (on bed vargas at this time) Vitamin/Supplement use: Unable to assess (on bed vargas at this time) Special diet at home: Unable to assess (on bed vargas at this time) Physical activity: Unable to assess (on bed vargas at this time) Nutrition education given (specify specific nutrition education and handout given): None given at this time. Food-drug interactions? Education given? None given at this time. Estimated Nutritional Needs Based on actual body weight (67 kg) Energy: 1816-2348 kcal/day (25-30 kcal/kg for ICU, intubated) vs 1326 kcal/day (PSU, 2003b) Protein: 80-100 g/day (1.2-1.5 g/kg preserve LBM) Fluid: 2154-2284 mL/day (1 mL/kcal) or per MD Nutrition Diagnosis: Increased nutrient needs r/t medical condition AEB need for TF, intubation, in ICU Intervention 1. If pt weaned off mechanicalventilation, consider increasing TF goal rate to 55mL/hr (1320mL, 1584kcal, 99g Pro, 1070mL H20) + decrease FWF to 60mL q2hrs (720mL H20) 2. Spoke w/ Dr Moreno regarding TF& FWF recommendation, confirmed. Monitor/Evaluate Goal: at least 75% of estimated needs Monitor: TF, Labs, GI function F/U in 2-3 days as high risk 10/27-10/28
--- NOTE | 2018-10-25 16:41 | NUR ---
PATIENT'S HEART RATE 168 A-FIB. HAVING SMALL RUNS A A-FIB WITH HR GREATER THAN 120. TELEPHONED DR BARLOW AT THIS TIME AND MADE AWARE. AWAITING NEW ORDERS.
--- NOTE | 2018-10-25 19:15 | NUR ---
DR PAGE AT BEDSIDE TO ASSESS PATIENT. MAGDA FULLER TRANSLATING TO PATIENT'S FAMILY (IN [place]) FOR DR PAGE.
--- NOTE | 2018-10-25 19:24 | NUR ---
REPORT RECIEVED FROM ALINA ANDREA. NURSING UPDATES POC DISCUSSED. SEE SHIFT ASSESSMENT FOR ASSESSMENT.
--- NOTE | 2018-10-25 19:25 | NUR ---
DR GARCIA @ BEDSIDE. NEW ORDERS DC ZOSYN AND FLAGYL. NEW ORDERS ROCEPHIN 2G IV DAILY. VANCO IV PER PHARMACRY.
--- NOTE | 2018-10-25 23:28 | NUR ---
PT RESTING CALMLY IN BED. NO S/S OF DISTRESS. VS WNL W/ NOTED AFIB. EYES ALIGNMENT NOTED SLIGHTLY OFF. PT W/ LOOSE BROWN BM USING BEDPAN CLEANED AND DRIED. REDNESS TO COCCYX AREA AND LEFT OPTIFOAM OFF BECAME SOILED FROM.
--- NOTE | 2018-10-26 01:46 | NUR ---
PT W/ LOOSE/LIQUID BROWN SCANT BM. PT CLEANED AND TOLERATED. WILL CONT TO MONITOR.
--- NOTE | 2018-10-26 02:30 | NUR ---
PT W/ BROWN UNFORMED BM. TOLERATED WELL. PT CLEANED W/ NEW CHUCKS. WILL CONT TO MONITOR.
[2018-10-26 03:05] VITALS: BP 138/70
--- NOTE | 2018-10-26 03:18 | NUR ---
PT RESTING CALMLY IN BED. NO ACUTE CHANGES. WILL CONT TO MONITOR AND ENDORSE.
--- NOTE | 2018-10-26 04:59 | NUR ---
PT CLEANED, BED BATH GIVEN, NEW LINENS, NEW OPTIFOAM APPLIED. NO ACUTE CHANGES. WILL ENDORSE.
--- NOTE | 2018-10-26 05:00 | NUR ---
BOX CUTTER @ BEDSIDE FOR AM LABS
[2018-10-26 05:19] LABS: BASOPHIL % 0.2 % (0-2)
[2018-10-26 05:21] LABS: PLATELET COUNT 110 x10^3mcL (130-400); RED CELL DISTRIBUTION WIDTH 15.5 % (11.5-14.5)
[2018-10-26 05:50] LABS: PHOSPHOROUS 2.7 mg/dL (2.5-4.9)
[2018-10-26 06:07] LABS: ALKALINE PHOSPHATASE 84 U/L (46-116); ALT/SGPT 1498 U/L (16-63); AST/SGOT 491 U/L (15-37); BILIRUBIN TOTAL 2.27 mg/dL (0.20-1.00); CALCIUM 7.5 mg/dL (8.5-10.1); CARBON DIOXIDE 27.4 mmol/L (21-32); CHLORIDE SERUM 112 mmol/L (98-107); CREATININE SERUM 1.4 mg/dL (0.7-1.3); GLUCOSE SERUM 116 mg/dL (74-106); POTASSIUM SERUM 3.7 mmol/L (3.5-5.1); SODIUM SERUM 147 mmol/L (136-145); TOTAL PROTEIN, SERUM 5.3 g/dL (6.4-8.2)
--- NOTE | 2018-10-26 06:12 | NUR ---
ESTATE MANAGER @ BEDSIDE.
--- NOTE | 2018-10-26 06:16 | NUR ---
ATTEMPTED SWALLOW EVAUL. TOLERATED POORLY. COUGHING W/ SMALL AMOUNTS OF WATER. WILL ENDORSE.
--- NOTE | 2018-10-26 06:28 | NUR ---
PT W/ UNFORMED BROWN BM. CLEANEN AND LINENS CHANGED. WILL ENDORSE.
--- NOTE | 2018-10-26 07:10 | NUR ---
REPORT RECEIVED FROM ALINA MAN. PT RECEIVED RESTING IN BED, BED IN LOWEST POSITION WITH WHEELS LOCKED AND SIDE RAILS UP. OF PT ASLEEP AT BEDSIDE IN CHAIR. PT BREATHING E/U ON 2L NASAL CANNULA, NO DISTRESS NOTED. TUBE FEEDING VITAL AF RUNNING AT 55 ML/HR WITH 100 ML FWF Q2H. PT AROUSABLE TO VOICE, FOLLOWS SIMPLE COMMANDS AND IS ABLE TO COMMUNICATE NEEDS THEY ARISE. WILL CONTINUE TO MONITOR PATIENT.
--- NOTE | 2018-10-26 07:19 | NUR ---
REPORT GIVEN TO ALINA ANDREA. NURSING UPDATES. POC DISCUSSED CARE OF PT RELEASED TO RN.
[2018-10-26 07:27] VITALS: BP 130/71
--- NOTE | 2018-10-26 09:38 | NUR ---
DR. LOREDO AT BEDSIDE ASSESSING PT. UPDATES PROVIDED, QUESTIONS ANSWERED. REQUESTED OBTAINING A CHEST XRAY TODAY AND RECOMMENDED 20 MG IVP LASIX.
--- NOTE | 2018-10-26 10:30 | NUR ---
DR. PLUMMER AND RESIDENTS AT BEDSIDE. UPDATES PROVIDED, QUESTIONS ADDRESSED. POC UPDATED TO START INCLUDING PT'S HOME MEDS WHILE HERE. WILL CARRY OUT NEW ORDERS THEY COME.
--- NOTE | 2018-10-26 12:00 | NUR ---
PT HAD 1 SMALL LIQUID BROWN STOOL, LELO CARE PROVIDED.
[2018-10-26 12:02] VITALS: BP 131/78
--- NOTE | 2018-10-26 12:35 | NUR ---
PT GIVEN WATER TO DRINK, SWALLOW DELAY NOTED. NO COUGH, NO S/S DISTRESS, NO CHANGE IN LUNG SOUNDS AFTER DRINKING.
[2018-10-26 15:55] VITALS: BP 142/85
--- NOTE | 2018-10-26 16:29 | NUR ---
PHYSICAL THERAPY AMBULATED PATIENT WITH WALKER AROUND UNIT. PATIENT TOLERATED WALKING WELL, BUT IS STILL WEAK SO PHYSICAL THERAPY WOULD LIKE TO CONTINUE WORKING WITH PT WHEN HE'S TRANSFERRED TO [facility] [place]. PT RETURNED TO BED, HR 120, BP 119/58 (100), SPO2 96% ON ROOM AIR, RR 14. WILL CONTINUE TO MONITOR PT.
--- NOTE | 2018-10-26 16:55 | NUR ---
PT WAS SEEN FOR DYSHAGIA. PT HAD DIFFICULTY WITH SWALLOWING OF PUREE DIET WITH THIN LIQUID. RECOMMENDATION CONTINUE WITH ALTERNATE MODE OF FEEDING NEED TO REEVAL .
--- NOTE | 2018-10-26 17:50 | NUR ---
ARRIVED FROM ICU AT 1740. AAO TIMES 4. FAMILY PRESENT. TELE # 1 A FIB 80-110. IV SITE RIGHT JUGULAR PATENT, CDI. NGT TO RIGHT NARES WITH VITAL TUBE FEEDING 55 PER HOUR, FWF 100 ML Q 2 HOURS. NO C/O PAIN. NO SOB. COOPERATIVE. AIR MATTESS APPLIED TO BED. OPTIFOAM TO COCCYX. VS'S STABLE.
[2018-10-26 17:52] VITALS: BP 117/80
--- NOTE | 2018-10-26 19:30 | NUR ---
RECIEVED PATIENT AT START OF SHIFT ALERT AND ORIENTED. ON TELE 1 AFIB HR 107. NO EDEMA NOTED. PULSES ARE MODERATE. NO SOB ON RA. NG TUBE TO R NARE INFUSING VITAL AT 55 ML/HR. CAZARES IN PLACE DRAINING DAVID URINE. AIR MATTRESS IN PLACE. PATIENT HAD WATERY BM. INCONTINENCE PAD CHANGED. SKIN IS INTACT. RIJ CENTRAL LINE IN PLACE, DRESSING APPEARS BLOODY. WILL CLEAN AND CHANGE THIS SHIFT. BED LOCKED AND IN LOWEST POSITION. CALL LIGHT AND BEDSID ETABLE WITHIN REACH.
[2018-10-26 21:04] VITALS: BP 164/82
--- NOTE | 2018-10-26 21:58 | NUR ---
PATIENT'S HEART RATE SPIKED TO 150. PATIENT SAID HE FEELS FINE, HE IS JUST COUGHING BECAUSE HE FEEL FLEM IN HIS THROAT. HEART RATE DECREASES WHEN PATIENT IS RELAXED. NOW MAINTAINING IN 90'S.
--- NOTE | 2018-10-26 22:10 | NUR ---
PATIENT'S HEPARIN IS ON HOLD AND XARELTO IS NOT DUE UNTIL TOMORROW MORNING. DR. STOVALL NOTIFED THAT PATIENT HAS NOT HAD ANTICOAGULANT TODAY. PLAN OF CARE DISCCUEESED. DR STOVALL STATED [facility] WILL PROVIDE SUFFICENT PROPHYLAXIS UNTIL XARELTO IN THE MORNING.
--- NOTE | 2018-10-26 22:31 | NUR ---
PATIENT'S RIJ CENTRAL LINE DRESSING CHANGED AT THIS TIME MAINTAINING STERILE TECHNIQUE. RIJ SITE WAS CLEANSED WITH CENTRAL LINE KIT CHLORAHEXIDINE AND ALCOHOL SWABS. FACE MASKS USED. DRESSING DATED AND SIGNED.
--- NOTE | 2018-10-27 01:45 | NUR ---
PATIENT HAS BEEN IN AFIB WITH RVR RANGING FROM 130-160. DR. ADAIR NOTIFIED. METROPOLOL IV PUSH ORDERED.
--- NOTE | 2018-10-27 01:58 | NUR ---
PATIENTS BP IS ONLY 102/72. METROPOLOL IV PUSH HELD AT THIS TIME.
--- NOTE | 2018-10-27 02:35 | NUR ---
PATIENTS BP INCREASED TO 117/73. HR IS STILL HIGH AT 155. METROPOLOL IV PUSH GIVEN PER EMAR.
--- NOTE | 2018-10-27 02:45 | NUR ---
PATIENT IS NOW AFIB HR 105, CONTROLLED. BP IS 105/61 (75).
[2018-10-27 05:30] VITALS: BP 99/70
--- NOTE | 2018-10-27 06:09 | NUR ---
DIGOXIN GIVEN EARLY PER EMAR DUE TO AFIB WITH RVR SUSTAINING IN 140'S AND 150'S.
--- NOTE | 2018-10-27 06:32 | NUR ---
NO FURTHER SIGNIFICANT EVENTS. NG TUBE INFUSING TUBE FEED, RESIDUAL ONLY 10 MLS, REPLACED. TELE MONITOR 1 REMAINS IN AFIB HR IN THE 110'S/120'S. CAZARES DRAINING DAVID URINE. CAZARES CARE PROVIDED. SCDS ON. AIR MATTRESS IN PLACE. BED LOCKED AND IN LOWEST POSITION. CALL LIGHT AND BEDSIDE TABLE WITHIN REACH.
[2018-10-27 07:20] LABS: BASOPHIL % 0.2 % (0-2)
[2018-10-27 07:32] LABS: CALCIUM 8.1 mg/dL (8.5-10.1); CARBON DIOXIDE 28.2 mmol/L (21-32); CHLORIDE SERUM 106 mmol/L (98-107); CREATININE SERUM 1.3 mg/dL (0.7-1.3); GLUCOSE SERUM 112 mg/dL (74-106); MAGNESIUM 1.9 mg/dL (1.8-2.4); POTASSIUM SERUM 3.6 mmol/L (3.5-5.1); SODIUM SERUM 141 mmol/L (136-145)
[2018-10-27 07:34] LABS: PLATELET COUNT 120 x10^3mcL (130-400); RED CELL DISTRIBUTION WIDTH 15.6 % (11.5-14.5)
--- NOTE | 2018-10-27 07:40 | NUR ---
PATIENT A/OX3, SPEECH CLEAR BUT SLOW TO RESPOND, EQUAL BULL RIDER, DENIES HEADACHE. PERRLA NOTED. TELE [address] READING AFIB 105. DENIES CP. PERIPHERAL PUSLES PAPLABLE, NO EDEMA NOTED. LUNGS CTA, BREATHGIN SOMEWHAT SHALLOW W/ SYMMETRICAL CHEST EXPANSION. NGT IN PLACE TO RT NARE RUNNING TUBE FEEDING VITAL AF 1.2 AT 55ML/HR (H20 FLUSH 100ML/2HR). RESIDUAL CHECKED <5ML, REPLACED. PLACEMENT AUSCULTATED. BOWEL SOUNDS ACTIVE, DENIES N/V. CAZARSE IN PLACE DRAINING YELLOW/DAVID URINE TO GRAVITY. IV ACCESS TO RIJ CENTRAL LINE, TRIPLE LUMEN SITE WNL. STATES PAIN/DISCOMFORT PRESENT TO THROAT, PAIN MED OFFERED AND REFUSED STATES TOLERABLE AT THIS TIME. CALL LIGHT WITHIN REACH, AT BEDSIDE.
--- NOTE | 2018-10-27 08:37 | NUR ---
RETRIEVED BLOOD FROM CENTRAL LINE FOR LAB. PORTS PATENT. RESP THERAPIST AT BEDSIDE NOW GIVING BREATHING TREATMENT.
--- NOTE | 2018-10-27 09:10 | NUR ---
PATIENT HAD MOD AMOUNT BROWN LOOSE BM, CLEANING PATIENT. ASSISTANCE PROVIDED, BLANCHABLE REDNESS NOTED TO BUTTOCK/SACRUM, PICTURE TAKEN AND OPTIFOAM APPLIED.
[2018-10-27 09:28] VITALS: BP 114/69
--- NOTE | 2018-10-27 09:45 | NUR ---
HYDRAULIC RIVETER REPORTS TELE READING 2-3 EPISODES OF SHORT RUNS V-TACH, HR 120-140'S, NO NEW MED ORDERS HAVE BEEN PLACED YET. FOLLOWED UP WITH MANUEL GOLD. WILL PLACE NEW ORDER OF METOPROLOL 50MG GIVE VIA NG.
[2018-10-27 13:09] VITALS: BP 113/68
--- NOTE | 2018-10-27 15:23 | NUR ---
PATIENT FAMILY AT BEDSIDE REPORTS NGT FELL/DISLODGED. FOUND TUBE TAPINGS NOT IN PLACE. NEW TAPINGS PLACED TO NOSE, PLACEMENT AUSCULTATED AND FEEDINGS RESUMED. WILL CONT TO MONITOR.
[2018-10-27 17:21] VITALS: BP 133/77
--- NOTE | 2018-10-27 19:07 | NUR ---
RECIEVED PATIENT AT START OF SHIFT A/O X3. DENIES PAIN. NO SOB ON RA. ON TELE 1, AFIB HR 120'S. NGT IN PLACE TO R NARE INFUSING VITAL AF 1.2 AT 55 ML/HR. BS ACTIVE ABDOMEN SOFT AND ROUND. CAZARES DRAINING DARK YELLOW URINE TO GRAVITY. ON AIR MATTRESS, OPTIFOAM IN PLACE TO SACRUM. RIJ CENTRAL LINE IS SALINE LOCKED, DRESSING CDI. BED LOCKED AND IN LOWEST POSIITON. CALL LIGHT AND BEDSDIE TABLE WITHIN REACH.
--- NOTE | 2018-10-27 20:30 | NUR ---
PATIENT PULLED OUT NG TUBE. PATIENT AGREED TO LET US ATTEMPT TO INSERT A NEW ONE SINCE HE FAILED HIS LAST SWALLOW EVAL AND IS UNABLE TO EAT FOOD. NG TUBE INSERTION WAS UNSUCCESSFUL BECUASE THE PATIENT WAS RESISTING AND AND THE TUBE COILED IN HIS MOUTH. PATIENT TOLD US TO STOP. PATIENT IS NOW REFUSING ADDITIONAL ATTEMPTS. WILL ASK PATIENT TO REINSERT AGAIN ONCE HE CALMS DOWN.
[2018-10-27 20:52] VITALS: BP 96/67
--- NOTE | 2018-10-27 21:20 | NUR ---
PATIENT IS VERY UPSET AND WANT TO LEAVE AMA. ANSWERING SERVICE TELEPHONE OPERATOR AT [facility] TO FACILITATE TRANSLATION. PATIENT IS CONFUSED AND BELIEVES WE ARE TRYING TO HURT HIM BECAUSE HE DIDNT LIKE THE WAY THE NG TUBE FELT WHEN WE WERE TRYING TO INSERT IT. PATIENT KEEPS TRYING TO GET UP AND IS PULLING ON HIS CAZARES AND CENTRAL LINE. PATIENT IS NOT PERMITTING ME TO TOUCH HIM. AT BEDSIDE IS UNSUCCESSFUL IN GETTING HIM TO CALM DOWN.
--- NOTE | 2018-10-27 21:35 | NUR ---
PATIENT'S SON WAS CALLED AND TOLD THE SITUATION SO THAT HE COULD TALK TO THE PATIETN AND GET HIM TO CALM DOWN. AFTER TALKING WITH HIS SON OVER THE PHONE PATIENT IS AGREEABLE TO STAY IN BED, BUT DOES NOT WANT ANY MORE CARE AT THIS TIME. HE IS REFUSING ALL MEDICATIONS AND ASSESSMENTS AT THIS TIME.
--- NOTE | 2018-10-27 22:00 | NUR ---
UNABLE TO DOCUMENT REFUSAL OF ROCEPHIN ON EMAR BECAUSE PATIENT WILL NOT ALLOW ME IN THE ROOM TO SCAN HIS ARM BAND.
--- NOTE | 2018-10-27 22:05 | NUR ---
DR. ADAIR NOTIFIED OF PATIENTS REFUSAL OF CARE, AND REFUSAL OF MEDICATIONS.
--- NOTE | 2018-10-28 04:28 | NUR ---
PATIENT HAS CALMED DOWN AND IS MORE AGREEABLE WITH CARE AT THIS TIME. ROCEPHIN GIVEN PER EMAR. PATIENT ALSO REPORTS COUGH AND IS REQUESTING COUGH MEDICINE. PATIENT TOLERATED A SMALL SIP OF WATER WITHOUT COUGHING, NO SWALLOW DELAY. DR. ADAIR PAGED FOR ORDER FOR LIQUID COUGH MEDICINE.
--- NOTE | 2018-10-28 05:00 | NUR ---
PATIENT IS REFUSING MORNING VITALS.
--- NOTE | 2018-10-28 05:10 | NUR ---
PATIENT IS REFUSING MORNING LABS. STILL AWAITING RETURN PAGE FROM DR. ADAIR
--- NOTE | 2018-10-28 05:17 | NUR ---
DR. ADAIR RETURNED PAGE. HE WANTS TO WAIT TO HAVE A SWALLOW EVAL DONE BEFORE ORDERING THE PATIENT ORAL MEDICATION. WILL INFORM PATIENT.
--- NOTE | 2018-10-28 05:27 | NUR ---
PATIENT REFUSED BLOOD SUGAR CHECK.
--- NOTE | 2018-10-28 06:38 | NUR ---
WILL ENDORSE CARE TO DAYSHIFT NURSE.
--- NOTE | 2018-10-28 07:15 | NUR ---
RECEIVED PT FROM NOC ALINA RAY. PT FOUND SITTING AT SIDE OF BED, AGITATED. WANTS TO GO AMA. AA/OX4, SPEAKS AZERBAIJANI ONLY, DISCUSSED PT PLAN, PURPOSE OF TREATMENTS, PT RIGHTS, MEDICATION PURPOSE/SIDE EFFECTS, PT AGREED TO SPEAK WITH PHYSICIAN REGARDING PLAN/AMA. AT BEDSIDE. PT FOLLOWS COMPLEX COMMANDS, RESPONDS TO VERBAL STIMULI. FACE SYMMETRICAL, SPEECH CLEAR. DENIES CHEST PAIN. AFIB WITH ELEVATED HR 102. DENIES SOB ON ROOM AIR. RR EVEN/UNLABORED. CHEST EXPANSION SYMMETRICAL. PULSES +2 BUE/BLE. RIJ IN TACT. DRESSING SOILED, DRESSING REMOVED, CENTRAL LINE DRESSING CHANGE PERFORMED. 3 LUMENS GOOD BLOOD RETURN, PATENT AND FLUSH WELL. NO S/S OF ACUTE DISTRESS. FALL PRECAUTIONS IN PLACE. BED IN LOW POSITION. CALL LIGHT WITHIN REACH. INSTRUCTED TO USE CALL LIGHT TO CALL FOR ASSISTANCE PRN AND BEFORE GETTING OOB. VERBALIZED UNDERSTANDING. CAZARES IN TACT DRAINING CLEAR/YELLOW URINE. OPTIFOAM TO SACRAL COCCYX. SIDE RAILS UP X2. WILL CONTINUE TO MONITOR.
[2018-10-28 08:47] VITALS: BP 136/85
--- NOTE | 2018-10-28 09:48 | NUR ---
TALKED WITH PATIENT AND FAMILY INCLUDING AND SON SARAVANAN ABOUT PT MEDICATION/PURPOSE OF TREATMENTS, PT AGREES TO STAY AND NOT GO AMA. AGREES TO RIJ CENTRAL LINE AND IV THERAPY AND CAZARES CATHETER. TOLERATED PUREE DIET WELL. NO COUGHING NOTED. DENIES DIFFICULTY SWALLOWING. PT SAT UP TO EAT BREAKFAST. TOLERATED WELL. NO N/V/D. PT AA/OX4 LAYING IN BED. NO S/S OF ACUTE DISTRESS. NO SOB ON ROOM AIR. NO CHEST PAIN. BED IN LOW POSITION. CALL LIGHT WITHIN REACH. WILL CONTINUE TO MONITOR.
--- NOTE | 2018-10-28 10:27 | NUR ---
PT LAYING IN BED. CALM/COOPERATIVE AT THIS TIME. NO SOB ON ROOM AIR. NO S/S OF ACUTE DISTRESS. RIJ CENTRAL LINE WNL, BLOOD RETURN TO PORTS X3, FLUSHES WELL. DRESSING CDI. CHANGED IN AM. CAZARES IN TACT DRAINING CLEAR/YELLOW URINE. AFIB ON TELE, HR 85. DENIES CHEST PAIN. NO SOB ON ROOM AIR. TOLERATED PUREE DIET WELL. NO N/V. NO COUGHING. HOB ELEVATED IN HIGH FOWLERS. FALL PRECAUTIONS IN PLACE. AIR MATTRESS IN PLACE. BED IN LOW POSITION. CALL LIGHT WITHIN REACH. WILL CONTINUE TO MONITOR.
[2018-10-28 10:53] LABS: CARBON DIOXIDE 26.3 mmol/L (21-32); CHLORIDE SERUM 107 mmol/L (98-107); CREATININE SERUM 1.4 mg/dL (0.7-1.3); GLUCOSE SERUM 172 mg/dL (74-106); POTASSIUM SERUM 3.9 mmol/L (3.5-5.1); SODIUM SERUM 140 mmol/L (136-145)
[2018-10-28 10:54] LABS: BASOPHIL % 0.3 % (0-2)
[2018-10-28 11:00] LABS: PLATELET COUNT 112 x10^3mcL (130-400); RED CELL DISTRIBUTION WIDTH 15.6 % (11.5-14.5)
[2018-10-28 11:56] VITALS: BP 109/65
--- NOTE | 2018-10-28 12:18 | NUR ---
PT AA/OX4 LAYING IN BED. DENIES PAIN. NO SOB ON ROOM AIR. RIJ WNL, DRESSING CDI. PATENT WITH BLOOD RETURN X3 PORTS. AFIB ON TELE. HR WNL. DENIES CHEST PAIN. NO N/V/D. TOLERATING PUREE DIET WELL. NO COUGHING. SUCTION AT BEDSIDE. FAMILY WITH PATIENT. PT SITTING AT SIDE OF BED EATING LUNCH. TOLERATING WELL. FALL PRECAUTIONS IN PLACE. SIDE RAILS UP X2. CAZARES IN TACT DRAINING CLEAR/YELLOW URINE. BLOOD SUGAR WNL. BED IN LOW POSITION. CALL LIGHT WITHIN REACH. WILL CONTINUE TO MONITOR.
--- NOTE | 2018-10-28 13:31 | NUR ---
Follow-up Nutrition Assessment :Wesleyra Arreola Lalo 243T-B Dx: A-fib with RVR Labs: (10/28) BH, BUN:35H, Cr:1.4H. Ca:8L, H/H:12.6/37L Meds: Cephulac, Folic acid, Lanoxin, Lopressor, Protoix, Rocephin, Vancomycin, Vitamin B-1, Xarelato, Toprol Diet: Cardiac Pureed HTL PO Intake: pt diet was advanced today Weights: (10/28) 68kg Skin: erythema to sacral coccyx Matthew: 16 Edema: +2 BUE/BLE GI: active bowel sounds Last BM: 10/26 Per progress note 10/28, overnight patient took out his NGT and refused to have another put back in. Pt was also attempting to pull out central line. Pt wanted to leave AMA. Per RN note 10/28, pt agreed to stay and not leave AMA. Pt is tolerating pureed diet well with no c/o N/V/D. During RD visit, pt was seen asleep with and son at bedside. Per son, pt does not like the food offered and wanted tortillas/[place] food. Explained we do not have that right now and that his father is on a textured diet but offered ONS. Pts son said his father might try it. Will update compnutrition and add ensure enlive HTL. Estimated Nutritional Needs Based on ideal body weight 51kg Energy:2607-1119 kcal/day (25-30kcal/kg for maintenance) Protein: 51-61g/day (1-1.2g/kg for geriatric maintenance) Fluid: per MD Nutrition Diagnosis: 1. Increased nutrient needs related to medical condition as evidenced by need for TF, intubation in ICU (resolved no longer on TF or in ICU). 2.Inadequate protein/energy intake related to pt not like food as evidenced by pt refusing to eat. Intervention: 1. Recommend continue with Cardiac purred HTL diet. 2. Recommend adding Ensure Enlive HTL. Monitor/Evaluate: Previous goal: PO intake meet at least 75% of estimated needs (N/A) Goal: PO intake meet at least 75% of estimated needs Monitor: PO intake, Labs, GI function F/U in 2-3 days as high risk:10/30-
--- NOTE | 2018-10-28 13:32 | NUR ---
1. Recommend continue with Cardiac purred HTL diet. 2. Recommend adding Ensure Enlive HTL.
[2018-10-28 16:43] VITALS: BP 110/64
[2018-10-28 17:08] VITALS: BP 149/62
--- NOTE | 2018-10-28 18:47 | NUR ---
PT SITTING IN CHAIR AT SIDE OF BED. AA/OX4. DENIES PAIN. NO SOB ON ROOM AIR. AFIB ON TELE. DENIES CHEST PAIN. CALM/COOPERATIVE. RIJ WNL, DRESSING CDI. SALINE LOCKED. PATENT WITH GOOD BLOOD RETURN X3 PORTS. CAZARES IN TACT DRAINING CLEAR/YELLOW URINE. FALL PRECAUTIONS IN PLACE. AT BEDSIDE. CALL LIGHT WITHIN REACH. WILL ENDORSE TO ONCOMING SHIFT.
--- NOTE | 2018-10-28 19:05 | NUR ---
CARE ASSUMED FROM OUTGOING RN. PT RESTING COMFORTABLY IN BEDSIDE CHAIR. FAMILY AT BEDSIDE. NO ACUTE DISTRESS NOTED. EVEN AND UNLABORED RESPIRATIONS ON RA. ON TELE# 1 READING AFIB AT 87BPM. RIJ INTACT, DRESSING CDI. CAZARES DRAINING TO GRAVITY PATENT AND INTACT WITH DARK YELLOW URINE NOTED. AIR MATTRESS IN USE. CALL LIGHT WITHIN REACH. WILL CONTINUE TO MONITOR.
[2018-10-28 20:32] VITALS: BP 116/71
--- NOTE | 2018-10-29 00:31 | NUR ---
PT ASLEEP COMFORTABLY IN BED. NO ACUTE DISTRESS NOTED. FAMILY AT BEDSIDE. EVEN AND UNLABORED RESPIRATIONS ON RA. ON TELE#1 READING AFIB 90. RIJ INTACT. BED IN LOWEST POSITION. SIDE RAILS UPX2. CALL YANETH WHITNEY WRIGHT. WILL CONTIUE TO MONITOR.
[2018-10-29 05:33] VITALS: BP 101/58
--- NOTE | 2018-10-29 06:44 | NUR ---
PT SLEPT COMFORTABLY IN INTERVALS THROUGHOUT THE SHIFT. ALL NEEDS TENDED TO AND MET. ALL SCHEDULED MEDICATIONS GIVEN. ON TELE# 1 READING AFIB AT 91BPM. RIJ INTACT, DRESSING CDI. CAZARES PATENT AND INTACT WITH DARK YELLOW URINE NOTED. BS CHECKED, NO COVERAGE NEEDED PER SLIDING SCALE. BED IN LOWEST POSITION. SIDE RAILS UPX2. CALL LIGHT WITHIN REACH. WILL ENDORSE TO ONCOMING SHIFT.
--- NOTE | 2018-10-29 07:10 | NUR ---
RECEIVED PT FROM NIGHT NURSE. PT IS SITTING UP IN BEDSIDE CHAIR AT THIS TIME. PT DENIES ANY PAIN AND LOOKS TO BE IN NO ACUTE DISTRESS AT THIS TIME. TELE MONITOR 1 PRESENT. CENTRAL LINE IS PATENT WITH NO SIGNS OF ERYTHEMA OR SWELLING. RESPIRATIONS EVEN AND UNLABORED ON ROOM AIR. FAMILY MEMBER AT BEDSIDE. CAZARES CATHETER PRESENT DRAINING DARK YELLOW URINE. CALL LIGHT WITHIN REACH. WILL CONTINUE TO MONITOR.
[2018-10-29 07:52] VITALS: BP 127/68
--- NOTE | 2018-10-29 09:15 | NUR ---
3 PORTS TO CENTRAL INE. WHITE AND BLUE PORT FLUSHING FREELY WITH BLOOD RETURN. BROWN PORT UNABLE TO FLUSH AND UNABLE TO GET BLOOD RETURN. ALL PORT LOCKED AND COVERED. WILL CONTINUE TO MONITOR.
--- NOTE | 2018-10-29 11:20 | NUR ---
DISCONTINUED CAZARES CATHETER ORDERED. PT TOLERATED WELL. EMPTIED 275 ML OF DAVID COLORED URINE FROM CATHETER. NO TRAUMA NOTED TO SITE. PERICARE PROVIDED, WILL CONTINUE TO MONITOR
[2018-10-29 12:17] VITALS: BP 104/61
[2018-10-29 13:59] VITALS: BP 104/61
--- NOTE | 2018-10-29 14:55 | NUR ---
PT IS SITTING IN BEDSIDE CHAIR TALKING WITH FAMILY MEMBER. PT LOOKS TO BE IN NO ACUTE DISTRESS AT THIS TIME AND DENIES ANY PAIN. FAMILY MEMBER AT BEDSIDE. CALL LIGHT WITHIN REACH. WILL CONTINUE TO MONITOR.
[2018-10-29 16:27] VITALS: BP 95/74
--- NOTE | 2018-10-29 18:31 | NUR ---
PT STATES THAT HE HAS VOIDING SINCE REMOVING CAZARES CATHETER.
--- NOTE | 2018-10-29 18:45 | NUR ---
PT IS LAYING DOWN IN BED WITH HOB UP RESTING. PT LOOKS TO BE IN NO ACUTE DISTRESS AT THIS TIME AND DENIES ANY PAIN. RESPRIATIONS EVEN AND UNLABORED ON ROOM AIR. IV SITE PATENT, WHITE AND BLUE PORT FLUSHING WITH BLOOD RETURN AND BROWN PORT NO FLUSH OR BLOOD RETURN. ALL 3 SITE H/L WITH CAP. FAMILY MEMBER AT BEDSIDE. PT STATES HAVING VOIDED TWICE SINCE DC CAZARES CATHETER. WILL ENDORSE TO ONCOMING SHIFT.
--- NOTE | 2018-10-29 19:10 | NUR ---
CARE ASSUMED FROM OUTGOING RN. PT RESTING COMFORTABLY IN BEDSIDE CHAIR AFTER USING THE RESTROOM WITH ASSIST FROM HIS . NO ACUTE DISTRESS NOTED. EVEN AND UNLABORED RESPIRATIONS ON RA. ON TELE#1 READING AFIB 80. RIJ INTACT, DRESSING CDI. CALL LIGHT WITHIN REACH. WILL CONTINUE TO MONITOR.
[2018-10-29 20:06] VITALS: BP 99/58
--- NOTE | 2018-10-29 23:59 | NUR ---
PT SITTING UP AT THE SIDE OF THE BED. FAMILY AT BEDSIDE. NO ACUTE DISTRESS NOTED. EVEN AND UNLABORED RESPIRATIONS ON RA. ON TELE#1 READING AFIB 89. CENTRAL LINE INTACT, BRONW PORT UNABLE TO FLUSH OR ACHIEVE BLOOD RETURN, MADE AWARE. ANTIBIOTICS GIVEN PER EMAR. PT TOLERATED WELL. BED IN LOWEST POSITION. AIR MATTRESS IN USE. SIDE RAILS UPX2. CALL LIGHT WITHIN REACH. WILL CONTINUE TO MONITOR.
[2018-10-30 05:45] VITALS: BP 118/76
--- NOTE | 2018-10-30 06:17 | NUR ---
PER MD ORDER, HEPARIN 100U USED TO FLUSH BROWN PORT OF RIJ CENTRAL LINE. ABLE TO FLUSH WITH 10ML OF SALINE 3 MINS POST HEPARIN. ALL PORTS FLUSHING WELL WITH GOOD FLUSHING RETURN. BLOOD DRAWN FROM RIJ CENTRAL LINE FOR AM LABS. WILL CONTINUE TO MONITOR AND ENDORSE TO ONCOMING SHIFT.
[2018-10-30 06:18] LABS: BASOPHIL % 0.6 % (0-2); PLATELET COUNT 139 x10^3mcL (130-400)
[2018-10-30 06:26] LABS: RED CELL DISTRIBUTION WIDTH 15.4 % (11.5-14.5)
--- NOTE | 2018-10-30 06:29 | NUR ---
PT SLEPT COMFORTABLY IN INTERVALS THROUGHOUT THE SHIFT. ALL NEEDS TENDED TO AND MET. ALL SCHEDULED MEDICATIONS GIVEN. ON TELE#1 READING AFIB AT 92BPM. EVEN AND UNLABORED RESPIRATIONS ON RA. RIJ CENTRAL LINE PATENT AND INTACT, DRESSING CDI. BED IN LOWEST POSITION. AIR MATTRESS IN USE. SIDE RAILS UPX2. CALL LIGHT WITHIN REACH. WILL ENDORSE TO ONCOMING SHIFT.
[2018-10-30 06:49] LABS: CALCIUM 8.3 mg/dL (8.5-10.1); CARBON DIOXIDE 21.6 mmol/L (21-32); CHLORIDE SERUM 107 mmol/L (98-107); CREATININE SERUM 1.4 mg/dL (0.7-1.3); GLUCOSE SERUM 92 mg/dL (74-106); PHOSPHOROUS 3.4 mg/dL (2.5-4.9); POTASSIUM SERUM 4.1 mmol/L (3.5-5.1); SODIUM SERUM 140 mmol/L (136-145)
--- NOTE | 2018-10-30 07:21 | NUR ---
REPORT TAKEN FROM CAUSTIC PREPARER NURSE AT THE BEDSIDE, PT AWAKE AND ALERT, AT THE BEDSIDE. PT DENIED PAIN, WILL CONTINUE TO MONITOR.
[2018-10-30 08:15] VITALS: BP 117/68
[2018-10-30] MEDS ORDERED: ROC1I IV (10:00)
[2018-10-30] MEDS ORDERED: VANCO 1.51.5 GM/250 IV (10:00)
[2018-10-30 11:53] VITALS: BP 110/66
[2018-10-30 15:00] VITALS: BP 110/66
--- NOTE | 2018-10-30 16:13 | NUR ---
REPORT GIVEN TO [facility] FROM [facility] VIA TELEPHONE, ASSISTANT TEACHER PRIMARY TIME 6-6:30
[2018-10-30 17:39] VITALS: BP 122/62
--- NOTE | 2018-10-30 18:39 | NUR ---
REPORT GIVEN TO [facility], TELE REMOVED AND TAKEN TO [place] [facility], ALL DISCHARGE FORMS SIGNED BY THE PATIENT, RIJ INTACT AND PATENT, PT ALERT AND ORIENTED X 4 IN NAD, DC'D IN THE CARE OF [facility].
== END 2018-10-30 18:40 | DRG 871 ==
LOC: ED 04:18 → IC 06:13 → DU 06:13 → IC 11:26 → DU 10-26 17:41
PROVIDERS: Emergency Medicine; Internal Medicine; Internal Medicine Gastroenterology; Internal Medicine Nephrology; ADMIT General Practice
PROC: 5A1945Z Respiratory Ventilation, 24-96 Consecutive Hours (ICD-10-PCS; principal; 2018-10-22)
PROC: 0BH18EZ Insertion of Endotracheal Airway into Trachea, Via Natural or Artificial Opening Endoscopic (ICD-10-PCS; 2018-10-22)
PROC: 05HM33Z Insertion of Infusion Device into Right Internal Jugular Vein, Percutaneous Approach (ICD-10-PCS; 2018-10-22)
DX: A41.9 Sepsis, unspecified organism (principal); J96.01 Acute respiratory failure with hypoxia; I50.23 Acute on chronic systolic (congestive) heart failure; I33.9 Acute and subacute endocarditis, unspecified; K72.00 Acute and subacute hepatic failure without coma; R65.21 Severe sepsis with septic shock; N17.9 Acute kidney failure, unspecified; E87.2 Acidosis; E87.1 Hypo-osmolality and hyponatremia; I13.0 Hypertensive heart and chronic kidney disease with heart failure and stage 1 through stage 4 chronic kidney disease, or unspecified chronic kidney disease; K70.10 Alcoholic hepatitis without ascites; N18.3 Chronic kidney disease, stage 3 (moderate); I48.2 Chronic atrial fibrillation; E87.5 Hyperkalemia; F10.10 Alcohol abuse, uncomplicated; Z91.14 Patient's other noncompliance with medication regimen; Z68.23 Body mass index [BMI] 23.0-23.9, adult
CPT/HCPCS: 31500; 32555; 36556; 36600; 82962; 83880; 87116; 87206; 92526-GN; 92610-GN; 94150; 97116-GP; 97530-GP; A4628; C9113; G0378; G0480; J0696; J1160; J1642; J1644; J1720; J1940; J2060; J2250; J2543; J2704; J3010; J3370; J3490; J7030; J7040; J7042; J7050; J7120; J7620; Q0092

== ENCOUNTER 2019-09-30 11:20 | Emergency (ER) | payer OTHER ==
[~2019-09-30] VITALS: Ht 154.9 cm; Wt 64.4 kg
[~2019-09-30 11:20] MED LIST changes: +AMPICILLIN500 MG PO; +CLARITHROMYCIN500 M1 PO; +EPZICOM1 TAB; +FLA500 PO; +ROC1I IV; +SPIRONOLACTONE100 MG PO; +VANCO 1.51.5 GM/250 IV
[2019-09-30 11:25] VITALS: Ht 154.9 cm; Wt 64.4 kg
[2019-09-30 12:04] LABS: BASOPHIL % 0.6 % (0-2); PLATELET COUNT 146 x10^3mcL (130-400)
[2019-09-30 12:10] LABS: CALCIUM 8.7 mg/dL (8.5-10.1); CARBON DIOXIDE 26.4 mmol/L (21-32); CHLORIDE SERUM 105 mmol/L (98-107); CREATININE SERUM 1.7 mg/dL (0.7-1.3); GLUCOSE SERUM 96 mg/dL (74-106); POTASSIUM SERUM 4.2 mmol/L (3.5-5.1); SODIUM SERUM 137 mmol/L (136-145)
[2019-09-30 12:15] LABS: ALBUMIN 3.7 g/dL (3.4-5.0); ALKALINE PHOSPHATASE 72 U/L (46-116); ALT/SGPT 33 U/L (16-63); AST/SGOT 28 U/L (15-37); BILIRUBIN TOTAL 1.38 mg/dL (0.20-1.00); LIPASE 89 IU/L (73-393); TOTAL PROTEIN, SERUM 7.7 g/dL (6.4-8.2)
[2019-09-30 12:30] LABS: RED CELL DISTRIBUTION WIDTH 14.6 % (11.5-14.5)
[2019-09-30 13:45] VITALS: BP 113/82
== END 2019-09-30 13:45 | disposition left against medical advice (07) ==
LOC: ED 11:20
PROVIDERS: Emergency Medicine
DX: I48.20 Chronic atrial fibrillation, unspecified (principal); I50.9 Heart failure, unspecified; N28.9 Disorder of kidney and ureter, unspecified
CPT/HCPCS: 83880; J3490; Q0092